=== PATIENT | female | born 1930 | race Caucasian/White ===

== ENCOUNTER 2017-01-12 05:40 | Inpatient (IN) | payer OTHER, MEDICAID ==
[~2017-01-12] VITALS: Ht 162.6 cm; Wt 86.0 kg
[2017-01-12 06:46] LABS: BASOPHIL % 0.3 % (0-2); PLATELET COUNT 227 x10^3mcL (130-400); RED CELL DISTRIBUTION WIDTH 12.5 % (11.5-14.5)
[2017-01-12 07:02] LABS: CALCIUM 11.8 mg/dL (8.5-10.1); CARBON DIOXIDE 25.5 mmol/L (21-32); CHLORIDE SERUM 100 mmol/L (98-107); CREATININE SERUM 1.2 mg/dL (0.6-1.0); GLUCOSE SERUM 162 mg/dL (74-106); POTASSIUM SERUM 3.8 mmol/L (3.5-5.1); SODIUM SERUM 139 mmol/L (136-145)
[2017-01-12 07:07] LABS: ALBUMIN 3.8 g/dL (3.4-5.0); ALKALINE PHOSPHATASE 80 U/L (46-116); ALT/SGPT 20 U/L (14-59); AST/SGOT 15 U/L (15-37); BILIRUBIN TOTAL 0.5 mg/dL (0.20-1.00); TOTAL PROTEIN, SERUM 7.7 g/dL (6.4-8.2)
[2017-01-12 08:59] LABS: FREE T4 1.01 ng/dL (0.76-1.46); FREE THYROXINE INDEX 2.5 ug/dL (1.4-4.5); T4(THYROXINE) 7.8 ug/dL (4.7-13.3)
[2017-01-12] MEDS ORDERED: METOPROLOL SUCC25 M2 PO (09:12)
[2017-01-12] MEDS ORDERED: METFORMIN HCL500 MG PO (09:13)
[2017-01-12] MEDS ORDERED: HCTZ/LISINOPRIL1 TA2 PO (09:13)
[2017-01-12] MEDS ORDERED: SIMVASTATIN40 M1 PO (09:13)
[2017-01-12] MEDS ORDERED: GABAPENTIN100 M2 PO (09:13)
[2017-01-12] MEDS ORDERED: CENTRUM (09:14)
[2017-01-12] MEDS ORDERED: MASON NATURAL1000 IU PO (09:14)
[2017-01-12 09:26] LABS: PHOSPHOROUS 2.8 mg/dL (2.5-4.9)
[2017-01-12 09:35] LABS: MAGNESIUM 1.2 mg/dL (1.8-2.4)
[2017-01-12 09:52] LABS: T3 TOTAL 0.97 ng/mL
[2017-01-12 10:00] VITALS: BP 131/70
[2017-01-12 10:28] VITALS: BP 131/70
[2017-01-12 13:31] VITALS: BP 150/51
[2017-01-12 17:39] VITALS: BP 103/38
[2017-01-12 20:49] VITALS: BP 110/40
[2017-01-13 02:58] LABS: UA SPECIFIC GRAVITY <=1.005 (1.005-1.035); microscopic required? YES; urine erythrocyte 1+ (NEGATIVE)
[2017-01-13 05:31] VITALS: BP 139/61
[2017-01-13 06:18] LABS: RED CELL DISTRIBUTION WIDTH 13.1 % (11.5-14.5)
[2017-01-13 06:33] LABS: CARBON DIOXIDE 24.2 mmol/L (21-32); CHLORIDE SERUM 109 mmol/L (98-107); CREATININE SERUM 1.3 mg/dL (0.6-1.0); GLUCOSE SERUM 132 mg/dL (74-106); MAGNESIUM 1.4 mg/dL (1.8-2.4); POTASSIUM SERUM 3.3 mmol/L (3.5-5.1); SODIUM SERUM 146 mmol/L (136-145)
[2017-01-13 07:35] LABS: PLATELET COUNT 125 x10^3mcL (130-400)
[2017-01-13 10:39] VITALS: BP 128/48
[2017-01-13 13:28] LABS: BAND NEUTROPHIL 26 % (0-10); SEGMENTED NEUTROPHILS 63 % (37-75)
[2017-01-13 13:29] LABS: METAMYELOCTE 1 % (0-2); MONOCYTE 3 % (0-7); MYELOCYTE 1 % (0-2); rbc morphology (normal/abnorm) NORMAL (NORMAL)
[2017-01-13 15:06] VITALS: BP 135/42
[2017-01-13 17:42] VITALS: BP 124/46
[2017-01-13 20:52] VITALS: BP 141/52
[2017-01-14 05:52] VITALS: BP 143/62
[2017-01-14 07:51] LABS: RED CELL DISTRIBUTION WIDTH 13.7 % (11.5-14.5)
[2017-01-14 07:59] LABS: CALCIUM 10.1 mg/dL (8.5-10.1); CARBON DIOXIDE 27.8 mmol/L (21-32); CHLORIDE SERUM 111 mmol/L (98-107); GLUCOSE SERUM 98 mg/dL (74-106); MAGNESIUM 1.6 mg/dL (1.8-2.4); POTASSIUM SERUM 3.3 mmol/L (3.5-5.1); SODIUM SERUM 146 mmol/L (136-145)
[2017-01-14 08:05] LABS: PLATELET COUNT 103 x10^3mcL (130-400)
[2017-01-14 09:01] LABS: BAND NEUTROPHIL 12 % (0-10); BASOPHIL 0 % (0-2); MONOCYTE 6 % (0-7); SEGMENTED NEUTROPHILS 76 % (37-75)
[2017-01-14 09:02] VITALS: BP 148/65
[2017-01-14 09:03] LABS: PLATELET MORPHOLOGY PLATELETS DECREASED; rbc morphology (normal/abnorm) NORMAL (NORMAL)
[2017-01-14 13:08] VITALS: BP 148/64
[2017-01-14 17:27] VITALS: BP 133/56
[2017-01-14 21:11] VITALS: BP 134/58
[2017-01-15 05:12] VITALS: BP 147/60
[2017-01-15 06:32] LABS: CALCIUM 10.1 mg/dL (8.5-10.1); CARBON DIOXIDE 27.5 mmol/L (21-32); CHLORIDE SERUM 109 mmol/L (98-107); CREATININE SERUM 0.9 mg/dL (0.6-1.0); GLUCOSE SERUM 89 mg/dL (74-106); MAGNESIUM 1.7 mg/dL (1.8-2.4); POTASSIUM SERUM 3.2 mmol/L (3.5-5.1); SODIUM SERUM 144 mmol/L (136-145)
[2017-01-15 07:11] LABS: RED CELL DISTRIBUTION WIDTH 13.4 % (11.5-14.5)
[2017-01-15 07:15] LABS: PLATELET COUNT 108 x10^3mcL (130-400)
[2017-01-15 09:18] VITALS: BP 150/58
[2017-01-15 09:23] LABS: BAND NEUTROPHIL 6 % (0-10); BASOPHIL 0 % (0-2); MONOCYTE 2 % (0-7); SEGMENTED NEUTROPHILS 76 % (37-75)
[2017-01-15 09:25] LABS: PLATELET MORPHOLOGY PLATELETS NORMAL; rbc morphology (normal/abnorm) NORMAL (NORMAL)
[2017-01-15 12:44] VITALS: BP 141/52
[2017-01-15] MEDS ORDERED: FLO4 PO (14:36)
[2017-01-15] MEDS ORDERED: BACTRIM DS1 TAB PO (14:37)
[2017-01-15] MEDS ORDERED: LAC PO (14:37)
[2017-01-15 14:40] VITALS: Ht 162.6 cm; Wt 86.0 kg
[2017-01-15 14:49] VITALS: BP 141/52
== END 2017-01-15 15:48 | disposition home or self-care (01) | DRG 871 ==
LOC: ED 05:40 → DU 07:54 → EDBEDREQSVC 08:10 → EDBEDREQTM 08:10 → EDBEDREQ 08:10 → EDBEDREQTM 08:13 → EDBEDREQSVC 08:13 → EDBEDREQ 08:13 → DU 09:31
PROVIDERS: Emergency Medicine; ADMIT Family Medicine Sports Medicine
DX: A41.9 Sepsis, unspecified organism (principal); R65.21 Severe sepsis with septic shock; N17.0 Acute kidney failure with tubular necrosis; N13.6 Pyonephrosis; E87.0 Hyperosmolality and hypernatremia; E83.42 Hypomagnesemia; E87.6 Hypokalemia; N28.1 Cyst of kidney, acquired; I67.1 Cerebral aneurysm, nonruptured; I10 Essential (primary) hypertension; E83.39 Other disorders of phosphorus metabolism; E11.51 Type 2 diabetes mellitus with diabetic peripheral angiopathy without gangrene; M41.9 Scoliosis, unspecified; M85.80 Other specified disorders of bone density and structure, unspecified site; M47.9 Spondylosis, unspecified; D69.6 Thrombocytopenia, unspecified; E78.1 Pure hyperglyceridemia; E03.9 Hypothyroidism, unspecified; E66.9 Obesity, unspecified; Z68.32 Body mass index [BMI] 32.0-32.9, adult; Z87.442 Personal history of urinary calculi
CPT/HCPCS: 82962; 83880; 84439; 94150; 97110-GP; 97116-GP; 97530-GP; J0696; J2405; J2543; J3010; J3475; J3490; J7030; J7040; J7042; J7620; Q0092; Q0177

== ENCOUNTER 2017-09-21 18:24 | Inpatient (IN) | payer OTHER, MEDICAID ==
[~2017-09-21] VITALS: Ht 162.6 cm; Wt 80.7 kg
[~2017-09-21 18:24] MED LIST: BACTRIM DS1 TAB PO; CENTRUM; FLO4 PO; GABAPENTIN100 M2 PO; HCTZ/LISINOPRIL1 TA2 PO; LAC PO; MASON NATURAL1000 IU PO; METFORMIN HCL500 MG PO; METOPROLOL SUCC25 M2 PO; SIMVASTATIN40 M1 PO
[2017-09-21 18:30] VITALS: Ht 162.6 cm; Wt 80.7 kg
[2017-09-21 19:19] LABS: BASOPHIL % 0.4 % (0-2); PLATELET COUNT 222 x10^3mcL (130-400); RED CELL DISTRIBUTION WIDTH 14.1 % (11.5-14.5)
[2017-09-21 19:36] LABS: CALCIUM 10.8 mg/dL (8.5-10.1); CARBON DIOXIDE 25.1 mmol/L (21-32); CHLORIDE SERUM 104 mmol/L (98-107); GLUCOSE SERUM 138 mg/dL (74-106); POTASSIUM SERUM 3.5 mmol/L (3.5-5.1); SODIUM SERUM 141 mmol/L (136-145)
[2017-09-21 19:40] LABS: ALBUMIN 3.8 g/dL (3.4-5.0); ALKALINE PHOSPHATASE 84 U/L (46-116); ALT/SGPT 19 U/L (14-59); AST/SGOT 17 U/L (15-37); BILIRUBIN TOTAL 0.3 mg/dL (0.20-1.00); HDL CHOLESTEROL 43 mg/dL (40-60); LIPASE 186 IU/L (73-393); TOTAL PROTEIN, SERUM 7.6 g/dL (6.4-8.2)
[2017-09-21 19:41] LABS: CHOLESTEROL 220 mg/dL (<200); CHOLESTEROL/HDL RATIO 5.1; TRIGLYCERIDES 563 mg/dL (<150)
[2017-09-21 19:42] LABS: T3 TOTAL 0.97 ng/mL
[2017-09-21 19:52] LABS: FREE T4 1.02 ng/dL (0.76-1.46); FREE THYROXINE INDEX 2.8 ug/dL (1.4-4.5); T4(THYROXINE) 8.6 ug/dL (4.7-13.3)
[2017-09-21 20:15] LABS: UA SPECIFIC GRAVITY >=1.030 (1.005-1.035); microscopic required? YES; urine erythrocyte 2+ (NEGATIVE)
[2017-09-22] VITALS (7 sets, daily range): BP systolic 131–177; BP diastolic 44–67
[2017-09-22 06:23] LABS: BASOPHIL % 0.7 % (0-2); PLATELET COUNT 196 x10^3mcL (130-400); RED CELL DISTRIBUTION WIDTH 13.7 % (11.5-14.5)
[2017-09-22 06:44] LABS: CALCIUM 9.9 mg/dL (8.5-10.1); CHLORIDE SERUM 108 mmol/L (98-107); CREATININE SERUM 0.8 mg/dL (0.6-1.0); GLUCOSE SERUM 94 mg/dL (74-106); MAGNESIUM 1.3 mg/dL (1.8-2.4); POTASSIUM SERUM 3.5 mmol/L (3.5-5.1); SODIUM SERUM 144 mmol/L (136-145)
[2017-09-22 23:57] LABS: microscopic required? YES; urine erythrocyte 1+ (NEGATIVE)
[2017-09-23] VITALS (7 sets, daily range): BP systolic 118–172; BP diastolic 54–89
[2017-09-23 06:56] LABS: BASOPHIL % 0.4 % (0-2); PLATELET COUNT 178 x10^3mcL (130-400)
[2017-09-23 07:07] LABS: CALCIUM 10.4 mg/dL (8.5-10.1); CHLORIDE SERUM 109 mmol/L (98-107); CREATININE SERUM 0.9 mg/dL (0.6-1.0); GLUCOSE SERUM 101 mg/dL (74-106); MAGNESIUM 1.9 mg/dL (1.8-2.4); POTASSIUM SERUM 3.8 mmol/L (3.5-5.1); SODIUM SERUM 144 mmol/L (136-145)
[2017-09-24 06:04] VITALS: BP 151/60
[2017-09-24 06:31] LABS: BASOPHIL % 0.7 % (0-2); PLATELET COUNT 180 x10^3mcL (130-400); RED CELL DISTRIBUTION WIDTH 14.1 % (11.5-14.5)
[2017-09-24 07:11] LABS: CALCIUM 9.1 mg/dL (8.5-10.1); CARBON DIOXIDE 25.5 mmol/L (21-32); CHLORIDE SERUM 110 mmol/L (98-107); CREATININE SERUM 0.8 mg/dL (0.6-1.0); GLUCOSE SERUM 85 mg/dL (74-106); POTASSIUM SERUM 3.8 mmol/L (3.5-5.1); SODIUM SERUM 142 mmol/L (136-145)
[2017-09-24 09:07] VITALS: BP 144/54
[2017-09-24 14:37] VITALS: BP 144/54
== END 2017-09-24 19:13 | disposition home or self-care (01) | DRG 694 ==
LOC: ED 18:24 → DU 23:21
PROVIDERS: Internal Medicine Pulmonary Disease; Specialist
DX: N13.2 Hydronephrosis with renal and ureteral calculous obstruction (principal); N39.0 Urinary tract infection, site not specified; E11.9 Type 2 diabetes mellitus without complications; E78.00 Pure hypercholesterolemia, unspecified; I10 Essential (primary) hypertension; E03.9 Hypothyroidism, unspecified; Z68.28 Body mass index [BMI] 28.0-28.9, adult
CPT/HCPCS: 82962; 83880; 84439; 97110-GP; 97116-GP; 97530-GP; 97535-GP; J0696; J1644; J3475; J3490; J7030; Q0092

== ENCOUNTER 2017-12-21 11:58 | Emergency (ER) | payer OTHER, MEDICAID ==
[2017-12-21 12:11] VITALS: Ht 160 cm
[2017-12-21 14:05] VITALS: BP 133/91
== END 2017-12-21 14:05 | disposition home or self-care (01) ==
LOC: ED 11:58
DX: N39.0 Urinary tract infection, site not specified (principal); I10 Essential (primary) hypertension; E11.9 Type 2 diabetes mellitus without complications; E78.00 Pure hypercholesterolemia, unspecified; E03.9 Hypothyroidism, unspecified
CPT/HCPCS: J1885

== ENCOUNTER 2018-08-09 17:47 | Emergency (ER) | payer OTHER ==
[~2018-08-09] VITALS: Ht 157.5 cm; Wt 90.7 kg
[2018-08-09 18:02] VITALS: Ht 157.5 cm; Wt 90.7 kg
[2018-08-09 18:23] LABS: BASOPHIL % 0.7 % (0-2); PLATELET COUNT 208 x10^3mcL (130-400); RED CELL DISTRIBUTION WIDTH 12.6 % (11.5-14.5)
[2018-08-09 18:32] LABS: CALCIUM 11.3 mg/dL (8.5-10.1); CARBON DIOXIDE 33.5 mmol/L (21-32); CHLORIDE SERUM 104 mmol/L (98-107); CREATININE SERUM 0.9 mg/dL (0.6-1.0); GLUCOSE SERUM 114 mg/dL (74-106); POTASSIUM SERUM 3.5 mmol/L (3.5-5.1); SODIUM SERUM 143 mmol/L (136-145)
[2018-08-09 18:36] LABS: ALBUMIN 3.6 g/dL (3.4-5.0); ALKALINE PHOSPHATASE 81 U/L (46-116); ALT/SGPT 32 U/L (14-59); AST/SGOT 15 U/L (15-37); BILIRUBIN TOTAL 0.3 mg/dL (0.20-1.00); HDL CHOLESTEROL 48 mg/dL (40-60); LIPASE 195 IU/L (73-393); TOTAL PROTEIN, SERUM 7.2 g/dL (6.4-8.2)
[2018-08-09 18:37] LABS: CHOLESTEROL 227 mg/dL (<200); CHOLESTEROL/HDL RATIO 4.7; TRIGLYCERIDES 481 mg/dL (<150)
[2018-08-09 18:49] LABS: FREE T4 1.16 ng/dL (0.76-1.46); FREE THYROXINE INDEX 3.8 ug/dL (1.4-4.5)
[2018-08-09 19:08] LABS: T3 TOTAL 0.96 ng/mL
[2018-08-09 20:22] LABS: UA SPECIFIC GRAVITY 1.025 (1.005-1.035); microscopic required? YES; urine erythrocyte 1+ (NEGATIVE)
[2018-08-09 21:10] VITALS: BP 150/48
== END 2018-08-09 21:10 | disposition home or self-care (01) ==
LOC: ED 17:47
PROVIDERS: Specialist
DX: I10 Essential (primary) hypertension (principal); S83.91XA Sprain of unspecified site of right knee, initial encounter; E11.9 Type 2 diabetes mellitus without complications; E78.00 Pure hypercholesterolemia, unspecified; E03.9 Hypothyroidism, unspecified; W01.0XXA Fall on same level from slipping, tripping and stumbling without subsequent striking against object, initial encounter; Y93.89 Activity, other specified; Y92.89 Other specified places as the place of occurrence of the external cause; Y99.8 Other external cause status
CPT/HCPCS: 36415; 83880; 84439; Q0092

== ENCOUNTER 2018-09-20 10:07 | Emergency (ER) | payer OTHER ==
[~2018-09-20] VITALS: Ht 154.9 cm; Wt 82.6 kg
[2018-09-20 10:11] VITALS: Ht 154.9 cm; Wt 82.6 kg
[2018-09-20 11:41] VITALS: BP 194/65
== END 2018-09-20 11:50 | disposition home or self-care (01) ==
LOC: ED 10:07
DX: R22.43 Localized swelling, mass and lump, lower limb, bilateral (principal); Z13.89 Encounter for screening for other disorder; I10 Essential (primary) hypertension; E03.9 Hypothyroidism, unspecified; E78.00 Pure hypercholesterolemia, unspecified; Z88.5 Allergy status to narcotic agent; Z88.6 Allergy status to analgesic agent
CPT/HCPCS: Q0092